=== PATIENT | female | born 1985 | race Two or more races ===

== ENCOUNTER 2025-03-11 14:12 | Emergency (ER) | payer OTHER, SELFPAY ==
[2025-03-11 14:16] VITALS: BP 160/100
--- NOTE | 2025-03-11 15:16 | ED.GENMED ---
History of Present Illness
General
Chief Complaint: Cardiac Symptoms
Time Seen by Provider: 03/11/25 14:58
History of Present Illness
History of Present Illness:
39-year-old otherwise healthy female presents to the emergency department for evaluation of palpitations that are persistent over the past 24 hours. She has a history of them occurring intermittently with occasional PVCs. States the symptoms feel
comparable to past episodes. She denies chest pain or shortness of breath. No obvious provoking or palliating factors. Denies illicit substance use. Social alcohol use. Does occasionally use nicotine vapes. No new supplements.
Review of Systems
Review of Systems
Allergies reviewed?: Yes
All Other Systems: ROS reviewed and negative except as documented in HPI and ROS
Phy Exam
Physical Exam
Physical Exam:
GEN: Well appearing, NAD, WDWN
HEENT: Oral mucosa moist, no scleral icterus
Cardiac: Regular rate and rhythm with occasional dropped beats, no murmur
Lung: No respiratory distress, no tachypnea
MSK: No gross deformity or injuries
Skin: Good color, no pallor or jaundice, no rashes
Neuro: AO x3, moves all extremities freely
Psych: Calm, cooperative
Course
Orders/Labs/Results
Orders:
Orders
03/11/25 14:13
Electrocardiogram (*1) Urgent
Reason for Study: Palpitations
EKG- Treatment ONCE
03/11/25 15:16
Test Result ONCE
03/11/25 15:32
Basic Metabolic Panel Urgent
Complete Blood Count/No Diff Urgent
HCG, Serum Qualitative Screen Urgent
TSH Reflex To Free T4 Urgent
Abnormal Lab Results
03/11/25
15:32
MCHC 32.9 L g/dL
(33.0-37.0)
BUN 19 H mg/dl
(7-17)
Glucose 119 H mg/dl
(70-99)
03/11/25 15:32
03/11/25 15:32
Vital Signs
Initial and Last Documented VS:
Initial Vital Signs
Temp Pulse Resp BP Pulse Ox
98.0 F 85 20 160/100 99
03/11/25 14:16 03/11/25 14:16 03/11/25 14:16 03/11/25 14:16 03/11/25 14:16
Last Documented Vital Signs
Temp Pulse Resp BP Pulse Ox
98.0 F 81 21 126/85 97
03/11/25 14:16 03/11/25 16:15 03/11/25 16:15 03/11/25 16:01 03/11/25 16:15
MDM/Problems Addressed
MDM/Problems Addressed:
Patient with frequent PVCs on telemetry and EKG during monitoring. Her labs are grossly unremarkable. Discussed potential benefit of beta-ger which she is willing to trial on a as needed basis
Comment
Comment:
EKG independently interpreted by me shows a normal sinus rhythm with frequent PVCs, no ST changes concerning for ischemia
*Pulse Oximetry
SaO2: 99
Oxygen Mode of Delivery: Room air
Patient hypoxic: no
*Critical Care Note
Total Time (30-74mins, 75-104mins- exclusive of procedures): Not Applicable
ED Attending Note
-
Portions of this chart may have been created with voice recognition software.� Occasional wrong word or��sound alike� substitutions may have occurred due to the inherent limitations of voice recognition software.
Discharge Plan
Departure
Patient Disposition: Home (Routine Discharge)
Date of Disposition: 03/11/25
Time of Disposition: 16:20
Patient with high blood pressure during this ER visit?: No
Discharge Problem:
Symptomatic PVCs
Instructions: Ventricular premature beats
Prescriptions:
New
metoprolol tartrate 25 mg tablet
12.5 mg PO BID PRN (Reason: PVCs/palpitations) Qty: 30 1RF
Referrals:
NONE,* [Family Provider, Internal Medicine]
Interventions
Interventions:
*Risk Screen - Suicide Last Done: 03/11/25 16:00
*General Assessment Last Done: 03/11/25 14:16
*Neglect/Abuse Screening Last Done: 03/11/25 16:00
*ED- Fall Risk Assessment Last Done: 03/11/25 15:53
*ED COVID-19 Vaccine History Last Done: 03/11/25 15:53
*Nursing Disposition Last Done: 03/11/25 16:41
ED- Pulmonary Assessment Last Done: 03/11/25 15:57
ED- Cardiac Assessment Last Done: 03/11/25 15:57
Discharge Date and Time
Discharge Date/Time: 03/11/25 16:41
Print Language: LAO
[2025-03-11 15:44] LABS: Hematocrit 39.2 % (37.0-47.0); Hemoglobin 12.9 g/dL (12.0-16.0); Mean Corp Hgb Conc. 32.9 g/dL (33.0-37.0); Mean Corpuscular Volume 89.3 fL (81.0-99.0); Platelet Count 283 10^3/uL (130-400); Red Cell Dist. Width 12.8 % (11.5-14.5)
[2025-03-11 15:50] LABS: HCG, Serum Qualitative Screen Negative
[2025-03-11 15:56] LABS: Blood Urea Nitrogen 19 mg/dl (7-17); Calcium 9.9 mg/dl (8.4-10.2); Carbon Dioxide 25 mmol/L (22-30); Chloride 104 mmol/L (98-107); Glucose 119 mg/dl (70-99); Potassium 4.6 mmol/L (3.5-5.1); Sodium 138 mmol/L (135-145); eGFR > 60.00
[2025-03-11 16:01] VITALS: BP 126/85
== END 2025-03-11 16:41 | disposition home or self-care (01) ==
LOC: EMR 14:12
PROVIDERS: Physician Assistant; EMERGENCY PHYSICIAN Emergency Medicine
DX: I49.3 Ventricular premature depolarization (principal)
CPT/HCPCS: 99284; 80048; 84443; 84703; 85027; 93005